=== PATIENT | male | born 1955 | race Caucasian/White ===

== ENCOUNTER 2022-08-31 10:45 | Outpatient (CLI) | payer MEDICARE, BC | END 2022-08-31 23:59 | disposition home health service (06) | LOC: WOU 10:45 | PROVIDERS: ATTEND Podiatrist Foot & Ankle Surgery | DX: T25.222A Burn of second degree of left foot, initial encounter (principal); T31.0 Burns involving less than 10% of body surface; X10.0XXA Contact with hot drinks, initial encounter; Y92.89 Other specified places as the place of occurrence of the external cause; I73.9 Peripheral vascular disease, unspecified; M79.672 Pain in left foot | CPT/HCPCS: 16020; A6253; G0463 ==

== ENCOUNTER 2022-09-23 11:16 | Inpatient (IN) | payer BC, MEDICARE ==
[~2022-09-23] VITALS: Ht 182.9 cm; Wt 77.6 kg
[2022-09-23] MEDS ORDERED: ONDANSETRON HCL/PF 4 MG/2 ML VIAL ONE (11:51)
[2022-09-23] MEDS ORDERED: LORAZEPAM INJ 2 MG/ML VIAL ONE (11:51)
[2022-09-23] MEDS ORDERED: IV NS 0.9% 1,000 ML BAG IV ONE (12:00)
[2022-09-23] MEDS ORDERED: BUPRENORPHINE HCL 8 MG TAB.SUBL SL ONE ×2 (12:00→12:22)
[2022-09-23] MEDS ORDERED: LORAZEPAM INJ 2 MG/ML VIAL IV ONE (12:00)
[2022-09-23] MEDS ORDERED: ONDANSETRON HCL/PF 4 MG/2 ML VIAL IVP ONE (12:00)
[2022-09-23 12:29] LABS: BASOPHILS % (AUTO) 0.2 % (0.0-2.0); HEMATOCRIT 43 % (39-51); HEMOGLOBIN 14.5 g/dL (13.5-17.5); LYMPHOCYTES # (AUTO) 0.6 K/uL (0.8-4.8); LYMPHOCYTES % (AUTO) 4.2 % (20.0-44.0); MEAN CORPUSCULAR HEMOGLOBIN 32 PG (26.0-33.0); MEAN CORPUSCULAR HGB CONC 34 g/dl (31.0-36.0); MEAN CORPUSCULAR VOLUME 94 fL (80-96); MONOCYTES # (AUTO) 0.9 K/uL (0.1-1.30); MONOCYTES % (AUTO) 6.2 % (2.0-12.0); NEUTROPHILS # (AUTO) 13.6 K/uL (1.8-8.9); NEUTROPHILS % (AUTO) 89.4 % (43.0-81.0); PLATELET COUNT (AUTO) 350 K/uL (150-450); RED BLOOD CELL COUNT(AUTO) 4.52 MIL/uL (4.5-6.0); WHITE BLOOD COUNT (AUTO) 15.2 K/uL (4.3-11.0)
[2022-09-23 13:00] LABS: CALCIUM, SERUM 9.6 mg/dL (8.5-10.1); CARBON DIOXIDE 18 mmol/L (21-32); CHLORIDE 88 mmol/L (98-107); CREATININE 0.9 mg/dL (0.6-1.3); GLUCOSE 173 mg/dL (74-106); POTASSIUM 4.1 mmol/L (3.5-5.1); SODIUM SERUM 126 mmol/L (136-145); UREA NITROGEN, BLOOD 16 mg/dL (7-18)
[2022-09-23 13:06] LABS: ALANINE AMINOTRANSFERASE 29 U/L (12-78); ALBUMIN 4.7 g/dL (3.4-5.0); ALKALINE PHOSPHATASE 106 U/L (46-116); ASPARTATE AMINOTRANSFERASE 34 U/L (15-37); BILIRUBIN,DIRECT 0.1 mg/dL (0.0-0.2); BILIRUBIN,TOTAL 1.1 mg/dL (0.2-1.0); LIPASE 27 U/L (73-393); TOTAL PROTEIN, SERUM 8.3 g/dL (6.4-8.2)
[2022-09-23] MEDS ORDERED: HYDR-3980 PO (14:00)
[2022-09-23] MEDS ORDERED: LOSA100T31 PO (14:00)
[2022-09-23] MEDS ORDERED: ALPR2TAB7 PO (14:00)
[2022-09-23 17:00] VITALS: BP 167/80; TEMP 98; O2SAT 96
[2022-09-23] MEDS ORDERED: ACETAMINOPHEN 325 MG TABLET PO PRN (17:30)
[2022-09-23] MEDS ORDERED: IV NS 0.9% 1,000 ML IV PRN (17:30)
[2022-09-23] MEDS: PANTOPRAZOLE 40 MG VIAL IV SCH (17:50)
[2022-09-23] MEDS: ONDANSETRON HCL/PF 4 MG/2 ML VIAL IVP PRN (17:51)
[2022-09-23] MEDS ORDERED: ALPRAZOLAM 1 MG TABLET PO PRN (18:30)
[2022-09-23] MEDS ORDERED: HYDROCODONE/APAP 10/325MG TABLET PO PRN (18:30)
[2022-09-23] MEDS: MORPHINE SULFATE INJ 2 MG/ML DISP.SYRIN IV PRN (18:59)
[2022-09-23] MEDS: LORAZEPAM INJ 2 MG/ML VIAL IV PRN (22:00)
[2022-09-24] MEDS: ONDANSETRON HCL/PF 4 MG/2 ML VIAL IVP PRN ×2 (00:17→07:55)
[2022-09-24] MEDS: LORAZEPAM INJ 2 MG/ML VIAL IV PRN ×3 (03:51→22:14)
[2022-09-24 05:00] VITALS: BP 158/79; TEMP 98; O2SAT 96
[2022-09-24 06:57] LABS: BASOPHILS % (AUTO) 0.2 % (0.0-2.0); HEMATOCRIT 38 % (39-51); HEMOGLOBIN 13.2 g/dL (13.5-17.5); LYMPHOCYTES # (AUTO) 1.2 K/uL (0.8-4.8); LYMPHOCYTES % (AUTO) 7.6 % (20.0-44.0); MEAN CORPUSCULAR HEMOGLOBIN 33 PG (26.0-33.0); MEAN CORPUSCULAR HGB CONC 35 g/dl (31.0-36.0); MEAN CORPUSCULAR VOLUME 96 fL (80-96); MONOCYTES # (AUTO) 1.7 K/uL (0.1-1.30); MONOCYTES % (AUTO) 10.2 % (2.0-12.0); NEUTROPHILS # (AUTO) 13.3 K/uL (1.8-8.9); PLATELET COUNT (AUTO) 274 K/uL (150-450); RED CELL DISTRIBUTION WIDTH 12.9 % (11.5-15.0); WHITE BLOOD COUNT (AUTO) 16.2 K/uL (4.3-11.0)
[2022-09-24 07:30] LABS: CALCIUM, SERUM 9.4 mg/dL (8.5-10.1); CREATININE 0.7 mg/dL (0.6-1.3); MAGNESIUM 2.1 mg/dL (1.8-2.4); PHOSPHORUS 3.1 mg/dL (2.5-4.9); POTASSIUM 3.3 mmol/L (3.5-5.1)
[2022-09-24] MEDS: PANTOPRAZOLE 40 MG VIAL IV SCH (08:38)
[2022-09-24] MEDS: LOSARTAN POTASSIUM 50 MG TABLET PO SCH (08:38)
[2022-09-24] MEDS ORDERED: POTASSIUM CHLORIDE 20 MEQ POWDER PACKET PO ONE (11:00)
[2022-09-24 13:00] VITALS: BP 156/80; TEMP 98; O2SAT 96
[2022-09-24] MEDS: MORPHINE SULFATE INJ 2 MG/ML DISP.SYRIN IV PRN ×2 (13:11→20:46)
[2022-09-24 16:00] VITALS: BP 170/79; TEMP 98.5; O2SAT 96
[2022-09-24] MEDS: hydrALAZINE HCL 10 MG TABLET PO PRN (16:49)
[2022-09-24 17:55] VITALS: BP 160/79; TEMP 98.5; O2SAT 96
[2022-09-24 21:00] VITALS: BP 142/75; TEMP 99.1; O2SAT 96
[2022-09-25] MEDS: LORAZEPAM INJ 2 MG/ML VIAL IV PRN (04:52)
[2022-09-25 05:00] VITALS: BP 156/79; TEMP 97.5; O2SAT 99
[2022-09-25 07:25] LABS: BASOPHILS % (AUTO) 0.1 % (0.0-2.0); EOSINOPHILS # (AUTO) 0.1 K/uL (0.0-0.7); EOSINOPHILS % (AUTO) 0.4 % (0.0-6.0); HEMATOCRIT 38 % (39-51); HEMOGLOBIN 13.1 g/dL (13.5-17.5); LYMPHOCYTES # (AUTO) 1.8 K/uL (0.8-4.8); LYMPHOCYTES % (AUTO) 14.2 % (20.0-44.0); MEAN CORPUSCULAR HEMOGLOBIN 33 PG (26.0-33.0); MEAN CORPUSCULAR HGB CONC 34 g/dl (31.0-36.0); MEAN CORPUSCULAR VOLUME 95 fL (80-96); MONOCYTES # (AUTO) 1.5 K/uL (0.1-1.30); MONOCYTES % (AUTO) 12.1 % (2.0-12.0); NEUTROPHILS # (AUTO) 9.1 K/uL (1.8-8.9); NEUTROPHILS % (AUTO) 73.2 % (43.0-81.0); PLATELET COUNT (AUTO) 293 K/uL (150-450); WHITE BLOOD COUNT (AUTO) 12.5 K/uL (4.3-11.0)
[2022-09-25 07:37] LABS: CALCIUM, SERUM 9.4 mg/dL (8.5-10.1); CREATININE 0.8 mg/dL (0.6-1.3); MAGNESIUM 2.2 mg/dL (1.8-2.4); PHOSPHORUS 2.8 mg/dL (2.5-4.9); POTASSIUM 3.1 mmol/L (3.5-5.1)
[2022-09-25] MEDS: LOSARTAN POTASSIUM 50 MG TABLET PO SCH (08:55)
[2022-09-25] MEDS ORDERED: PANTOPRAZOLE 40 MG/PACK PACK PO SCH (09:00)
[2022-09-25] MEDS: POTASSIUM CHLORIDE 20 MEQ TAB.PRT.SR PO SCH ×2 (10:25→11:35)
[2022-09-25] MEDS: MORPHINE SULFATE INJ 2 MG/ML DISP.SYRIN IV PRN ×2 (10:26→14:49)
[2022-09-25 13:00] VITALS: BP 180/86; TEMP 98.4; O2SAT 99
[2022-09-25] MEDS: hydrALAZINE HCL 10 MG TABLET PO PRN (13:26)
[2022-09-25 18:15] VITALS: BP 172/88
[2022-09-25] MEDS ORDERED: hydrALAZINE HCL 10 MG TABLET PO ONE (18:30)
== END 2022-09-25 18:50 | disposition home or self-care (01) | DRG 392 ==
LOC: ER 11:33 → MEDSG1 16:58
PROVIDERS: ADMIT Nurse Practitioner Acute Care; ATTEND Nurse Practitioner Acute Care
PROC: 05HB33Z Insertion of Infusion Device into Right Basilic Vein, Percutaneous Approach (ICD-10-PCS; principal; 2022-09-24)
DX: A08.4 Viral intestinal infection, unspecified (principal); E87.1 Hypo-osmolality and hyponatremia; F19.239 Other psychoactive substance dependence with withdrawal, unspecified; E87.20 Acidosis, unspecified; I10 Essential (primary) hypertension; F41.9 Anxiety disorder, unspecified; E78.5 Hyperlipidemia, unspecified; Z79.899 Other long term (current) drug therapy; E87.6 Hypokalemia; G89.29 Other chronic pain; D72.829 Elevated white blood cell count, unspecified
CPT/HCPCS: 36415; 71045-TC; 80048-TC; 80061-TC; 80076-TC; 83605-TC; 83690-TC; 83735-TC; 84100-TC; 85025-TC; A4223; C9113; G0378; J2060; J2270; J2405; J7030

== ENCOUNTER 2024-01-29 15:24 | Inpatient (IN) | payer BC, MEDICARE ==
[~2024-01-29] VITALS: Ht 188 cm; Wt 71.2 kg
[~2024-01-29 15:24] MED LIST: ALPR2TAB7 PO; HYDR-3980 PO; LOSA100T31 PO
[2024-01-29] MEDS ORDERED: LORAZEPAM INJ 2 MG/ML VIAL ONE (15:58)
[2024-01-29] MEDS: LORAZEPAM INJ 2 MG/ML VIAL IV ONE ×2 (16:00→22:27)
[2024-01-29] MEDS ORDERED: ONDANSETRON HCL/PF 4 MG/2 ML VIAL ONE (16:15)
[2024-01-29] MEDS: ONDANSETRON HCL/PF - ER 4 MG/2 ML VIAL IV ONE (16:15)
[2024-01-29 16:30] LABS: BASOPHILS # (AUTO) 0.2 K/uL (0.0-0.2); HEMATOCRIT 39 % (39-51); HEMOGLOBIN 13.2 g/dL (13.5-17.5); LYMPHOCYTES # (AUTO) 0.7 K/uL (0.8-4.8); MEAN CORPUSCULAR HEMOGLOBIN 30 PG (26.0-33.0); MEAN CORPUSCULAR HGB CONC 34 g/dl (31.0-36.0); MEAN CORPUSCULAR VOLUME 87 fL (80-96); MONOCYTES # (AUTO) 1.1 K/uL (0.1-1.30); MONOCYTES % (AUTO) 4.9 % (2.0-12.0); NEUTROPHILS # (AUTO) 20.6 K/uL (1.8-8.9); NEUTROPHILS % (AUTO) 91.1 % (43.0-81.0); PLATELET COUNT (AUTO) 458 K/uL (150-450); RED BLOOD CELL COUNT(AUTO) 4.45 MIL/uL (4.5-6.0); RED CELL DISTRIBUTION WIDTH 16.2 % (11.5-15.0); WHITE BLOOD COUNT (AUTO) 22.6 K/uL (4.3-11.0)
[2024-01-29 16:41] LABS: CALCIUM, SERUM 9.4 mg/dL (8.5-10.1); CARBON DIOXIDE 16 mmol/L (21-32); CHLORIDE 105 mmol/L (98-107); CREATININE 1.4 mg/dL (0.6-1.3); GLUCOSE 143 mg/dL (74-106); POTASSIUM 3.7 mmol/L (3.5-5.1); SODIUM SERUM 140 mmol/L (136-145); UREA NITROGEN, BLOOD 21 mg/dL (7-18)
[2024-01-29 16:45] LABS: ALANINE AMINOTRANSFERASE 26 U/L (12-78); ALBUMIN 4.5 g/dL (3.4-5.0); ALCOHOL, BLOOD < 3 mg/dL (0-10); ALKALINE PHOSPHATASE 133 U/L (46-116); ASPARTATE AMINOTRANSFERASE 19 U/L (15-37); BILIRUBIN,DIRECT 0.1 mg/dL (0.0-0.2); BILIRUBIN,TOTAL 0.6 mg/dL (0.2-1.0); TOTAL PROTEIN, SERUM 8.3 g/dL (6.4-8.2)
[2024-01-29 16:51] LABS: INR 1.02 (0.91-1.10); PARTIAL THROMBOPLASTIN TIME 24.8 SEC (24.3-34.3); PROTHROMBIN TIME 10.8 SECS (9.2-11.1)
[2024-01-29 17:06] LABS: CREATINE KINASE, TOTAL 194 U/L (39-308)
[2024-01-29 17:14] LABS: MONOCYTES % (MANUAL) 5 % (0-11.0); NEUTROPHILS % (MANUAL) 90 (42-76)
[2024-01-29 17:15] LABS: LYMPHOCYTES % (MANUAL) 5 % (16-48); PLATELET ESTIMATE ADEQUATE
[2024-01-29 17:16] LABS: LACTIC ACID 6.3 mmol/L (0.4-2.0)
[2024-01-29] MEDS ORDERED: CEFTRIAXONE 1 G VIAL ONE (17:27)
[2024-01-29] MEDS ORDERED: LIDOCAINE 1% INJ 50 ML MDV IJ ONE (17:28)
[2024-01-29 17:29] LABS: APPEARANCE,URINE CLEAR (CLEAR); BILIRUBIN,URINE NEGATIVE (NEGATIVE); BLOOD, URINE 2+ Ery/uL (NEGATIVE); COLOR,URINE YELLOW (YELLOW); KETONES,URINE 2+ mg/dL (NEGATIVE); LEUKOCYTE ESTERASE ,URINE NEGATIVE (NEGATIVE); NITRITE, URINE NEGATIVE (NEGATIVE); PH,URINE 5.5 (5.0-8.0); PROTEIN,URINE 1+ mg/dl (NEGATIVE); UGLUCOSE NEGATIVE (NEGATIVE); UROBILINOGEN,URINE 0.2 EU/dL (0.2)
[2024-01-29] MEDS: CEFTRIAXONE 1 G VIAL IM ONE (17:30)
[2024-01-29] MEDS: IV NS 0.9% 1,000 ML BAG IV ONE (17:30)
[2024-01-29 17:31] LABS: ADD URINE CULTURE NO; BACTERIA,URINE Rare /HPF (None Seen); SQUAMOUS EPITHELIAL CELL,UR Rare /HPF (None Seen)
[2024-01-29 17:32] LABS: CALCIUM OXALATE CRYSTALS,UR Few /HPF (None Seen)
[2024-01-29 17:59] LABS: AMPHETAMINE, URINE NEGATIVE (NEGATIVE); BARBITURATE, URINE NEGATIVE (NEGATIVE); BENZODIAZEPINE, URINE NEGATIVE (NEGATIVE); CANNABINOID, URINE POSITIVE (NEGATIVE); COCCAINE, URINE NEGATIVE (NEGATIVE); OPIATE, URINE NEGATIVE (NEGATIVE); PHENCYCLIDINE SCREEN,URINE NEGATIVE (NEGATIVE)
[2024-01-29] MEDS ORDERED: AMLO-213 PO (18:48)
[2024-01-29] MEDS ORDERED: PANT40TA49 PO (18:48)
[2024-01-29] MEDS ORDERED: ALBU6.7H9 IH (18:48)
[2024-01-29] MEDS: LEVETIRACETAM (500MG) 1,000 MG in IV NS 0.9% 90 ML IV SCH (19:50)
[2024-01-29] MEDS: FLAGYL/NS RTU 500 MG/100 ML PIGGYBACK IV ONE (20:35)
[2024-01-29 22:33] VITALS: BP 144/68; TEMP 98.3; O2SAT 98
[2024-01-29] MEDS ORDERED: Z GUARD REMEDY 4 OZ OINT TP PRN (23:00)
[2024-01-29] MEDS ORDERED: ALBUTEROL SULFATE 8 GM HFA.AER.AD IH PRN (23:00)
[2024-01-29] MEDS ORDERED: ACETAMINOPHEN 325 MG TABLET PO PRN (23:00)
[2024-01-29] MEDS ORDERED: ALPRAZOLAM 1 MG TABLET PO PRN (23:00)
[2024-01-30] VITALS: BP 152/72; TEMP 98.7; O2SAT 98
[2024-01-30] MEDS: ONDANSETRON HCL/PF 4 MG/2 ML VIAL IVP PRN (00:34)
[2024-01-30 04:00] VITALS: BP 145/78; TEMP 97.9; O2SAT 98
[2024-01-30 07:58] LABS: BASOPHILS % (AUTO) 0.2 % (0.0-2.0); HEMATOCRIT 38 % (39-51); HEMOGLOBIN 12.7 g/dL (13.5-17.5); LYMPHOCYTES # (AUTO) 1.3 K/uL (0.8-4.8); LYMPHOCYTES % (AUTO) 7.5 % (20.0-44.0); MEAN CORPUSCULAR HEMOGLOBIN 29 PG (26.0-33.0); MEAN CORPUSCULAR HGB CONC 34 g/dl (31.0-36.0); MEAN CORPUSCULAR VOLUME 86 fL (80-96); MONOCYTES % (AUTO) 5.6 % (2.0-12.0); NEUTROPHILS % (AUTO) 86.7 % (43.0-81.0); PLATELET COUNT (AUTO) 338 K/uL (150-450); RED BLOOD CELL COUNT(AUTO) 4.41 MIL/uL (4.5-6.0); RED CELL DISTRIBUTION WIDTH 16.6 % (11.5-15.0); WHITE BLOOD COUNT (AUTO) 17.3 K/uL (4.3-11.0)
[2024-01-30 08:00] VITALS: BP 158/74; TEMP 98.8; O2SAT 98
[2024-01-30] MEDS: PANTOPRAZOLE 40 MG TABLET.DR PO SCH (08:07)
[2024-01-30] MEDS: AMLODIPINE BESYLATE 10 MG TABLET PO SCH (08:07)
[2024-01-30] MEDS: LEVETIRACETAM (250 MG) 250 MG TABLET PO SCH (08:07)
[2024-01-30] MEDS: HEPARIN SODIUM, PORCINE 5000 UNITS/1 ML VIAL SQ SCH (08:08)
[2024-01-30 08:12] LABS: CALCIUM, SERUM 9.3 mg/dL (8.5-10.1); CREATININE 1.1 mg/dL (0.6-1.3); MAGNESIUM 2.5 mg/dL (1.8-2.4); PHOSPHORUS 2.7 mg/dL (2.5-4.9); POTASSIUM 3.6 mmol/L (3.5-5.1)
[2024-01-30] MEDS: HYDROCODONE/APAP 10/325MG TABLET PO SCH (08:16)
[2024-01-30 09:03] LABS: THYROID STIMULATING HORMONE 0.82 uIU/mL (0.358-3.74)
[2024-01-30 12:00] VITALS: BP 158/82; TEMP 98.6; O2SAT 98
[2024-01-30] MEDS: METRONIDAZOLE 500MG/ NS 100ML 500 MG in PREMIX 1 EA IV SCH (12:17)
[2024-01-30] MEDS: CEFTRIAXONE 1 G in IV D5W 50 ML IV SCH (13:18)
[2024-01-30 16:00] VITALS: BP 155/88; TEMP 97.8; O2SAT 97
[2024-01-30 20:00] VITALS: BP 151/76; TEMP 98.2; O2SAT 95
[2024-01-31] VITALS: BP 158/84; TEMP 97.2; O2SAT 96
[2024-01-31 04:00] VITALS: BP 147/82; TEMP 97.9; O2SAT 100
[2024-01-31 07:07] LABS: FOLIC ACID 16.2 ng/mL (>3.0)
[2024-01-31 08:00] VITALS: BP 179/94; TEMP 97.7; O2SAT 99
[2024-01-31 08:18] LABS: CALCIUM, SERUM 9.2 mg/dL (8.5-10.1); CREATININE 0.8 mg/dL (0.6-1.3); POTASSIUM 3.5 mmol/L (3.5-5.1)
[2024-01-31 08:47] LABS: BASOPHILS % (AUTO) 0.2 % (0.0-2.0); EOSINOPHILS % (AUTO) 0.2 % (0.0-6.0); HEMATOCRIT 41 % (39-51); HEMOGLOBIN 13.7 g/dL (13.5-17.5); LYMPHOCYTES # (AUTO) 1.8 K/uL (0.8-4.8); LYMPHOCYTES % (AUTO) 12.5 % (20.0-44.0); MEAN CORPUSCULAR HEMOGLOBIN 29 PG (26.0-33.0); MEAN CORPUSCULAR HGB CONC 33 g/dl (31.0-36.0); MEAN CORPUSCULAR VOLUME 87 fL (80-96); MONOCYTES # (AUTO) 1.4 K/uL (0.1-1.30); MONOCYTES % (AUTO) 9.8 % (2.0-12.0); NEUTROPHILS # (AUTO) 11.2 K/uL (1.8-8.9); NEUTROPHILS % (AUTO) 77.3 % (43.0-81.0); PLATELET COUNT (AUTO) 323 K/uL (150-450); RED BLOOD CELL COUNT(AUTO) 4.71 MIL/uL (4.5-6.0); RED CELL DISTRIBUTION WIDTH 16.3 % (11.5-15.0); WHITE BLOOD COUNT (AUTO) 14.5 K/uL (4.3-11.0)
[2024-01-31 12:00] VITALS: BP 140/92; TEMP 97.9; O2SAT 99
[2024-01-31 16:00] VITALS: BP 174/91; TEMP 98.4; O2SAT 99
[2024-01-31 20:00] VITALS: BP 153/81; TEMP 98.1; O2SAT 98
[2024-02-01] VITALS (11 sets, daily range): BP systolic 138–191; BP diastolic 63–98; TEMP 97.9–98.4; O2SAT 96–100
[2024-02-01 10:25] LABS: BASOPHILS # (AUTO) 0.1 K/uL (0.0-0.2); BASOPHILS % (AUTO) 0.7 % (0.0-2.0); EOSINOPHILS # (AUTO) 0.1 K/uL (0.0-0.7); EOSINOPHILS % (AUTO) 0.4 % (0.0-6.0); HEMATOCRIT 39 % (39-51); HEMOGLOBIN 12.8 g/dL (13.5-17.5); LYMPHOCYTES # (AUTO) 1.9 K/uL (0.8-4.8); LYMPHOCYTES % (AUTO) 14.5 % (20.0-44.0); MEAN CORPUSCULAR HEMOGLOBIN 29 PG (26.0-33.0); MEAN CORPUSCULAR HGB CONC 33 g/dl (31.0-36.0); MEAN CORPUSCULAR VOLUME 87 fL (80-96); MONOCYTES # (AUTO) 1.7 K/uL (0.1-1.30); MONOCYTES % (AUTO) 12.8 % (2.0-12.0); NEUTROPHILS # (AUTO) 9.2 K/uL (1.8-8.9); NEUTROPHILS % (AUTO) 71.6 % (43.0-81.0); PLATELET COUNT (AUTO) 314 K/uL (150-450); RED BLOOD CELL COUNT(AUTO) 4.42 MIL/uL (4.5-6.0); RED CELL DISTRIBUTION WIDTH 16.4 % (11.5-15.0); WHITE BLOOD COUNT (AUTO) 12.9 K/uL (4.3-11.0)
[2024-02-01 10:36] LABS: CALCIUM, SERUM 9.2 mg/dL (8.5-10.1); CREATININE 0.8 mg/dL (0.6-1.3); POTASSIUM 3.3 mmol/L (3.5-5.1)
[2024-02-01] MEDS: hydrALAZINE HCL IV 20 MG VIAL IV PRN (13:05)
[2024-02-01] MEDS: ZOLPIDEM TARTRATE 5 MG TABLET PO PRN (21:41)
[2024-02-01] MEDS: ALBUTEROL FS 2.5 MG/3 ML VIAL.NEB NEB PRN (23:07)
[2024-02-02] VITALS: BP 152/86; TEMP 98.2; O2SAT 98
[2024-02-02 04:00] VITALS: BP 159/85; TEMP 98.4; O2SAT 99
[2024-02-02 07:21] LABS: BASOPHILS % (AUTO) 0.3 % (0.0-2.0); EOSINOPHILS # (AUTO) 0.1 K/uL (0.0-0.7); EOSINOPHILS % (AUTO) 0.6 % (0.0-6.0); HEMATOCRIT 41 % (39-51); HEMOGLOBIN 13.7 g/dL (13.5-17.5); LYMPHOCYTES # (AUTO) 1.7 K/uL (0.8-4.8); LYMPHOCYTES % (AUTO) 18.3 % (20.0-44.0); MEAN CORPUSCULAR HEMOGLOBIN 29 PG (26.0-33.0); MEAN CORPUSCULAR HGB CONC 34 g/dl (31.0-36.0); MEAN CORPUSCULAR VOLUME 87 fL (80-96); MONOCYTES # (AUTO) 1.2 K/uL (0.1-1.30); MONOCYTES % (AUTO) 13.6 % (2.0-12.0); NEUTROPHILS # (AUTO) 6.2 K/uL (1.8-8.9); NEUTROPHILS % (AUTO) 67.2 % (43.0-81.0); PLATELET COUNT (AUTO) 337 K/uL (150-450); RED CELL DISTRIBUTION WIDTH 16.4 % (11.5-15.0); WHITE BLOOD COUNT (AUTO) 9.2 K/uL (4.3-11.0)
[2024-02-02 07:38] LABS: CALCIUM, SERUM 9.1 mg/dL (8.5-10.1); CREATININE 0.8 mg/dL (0.6-1.3)
[2024-02-02 08:15] VITALS: BP 153/94; TEMP 97.5; O2SAT 95
[2024-02-02] MEDS: POTASSIUM CHLORIDE 20 MEQ TAB.PRT.SR PO SCH (09:43)
[2024-02-02] MEDS: METRONIDAZOLE 500 MG TABLET PO SCH (12:01)
[2024-02-02 12:15] VITALS: BP 134/84; TEMP 98.8; O2SAT 97
[2024-02-02 16:07] VITALS: BP 135/79; TEMP 98.2; O2SAT 97
[2024-02-02 20:00] VITALS: BP 128/97; TEMP 97.7; O2SAT 96
[2024-02-02] MEDS: HYDROCODONE/APAP 5/325MG TABLET PO PRN (21:36)
[2024-02-03 04:00] VITALS: BP 153/92; TEMP 98; O2SAT 97
[2024-02-03 08:00] VITALS: BP 145/68; TEMP 98.6; O2SAT 97
[2024-02-03 08:15] LABS: BASOPHILS # (AUTO) 0.1 K/uL (0.0-0.2); BASOPHILS % (AUTO) 0.5 % (0.0-2.0); EOSINOPHILS # (AUTO) 0.2 K/uL (0.0-0.7); EOSINOPHILS % (AUTO) 1.5 % (0.0-6.0); HEMATOCRIT 39 % (39-51); HEMOGLOBIN 13.4 g/dL (13.5-17.5); LYMPHOCYTES # (AUTO) 2.6 K/uL (0.8-4.8); MEAN CORPUSCULAR HEMOGLOBIN 30 PG (26.0-33.0); MEAN CORPUSCULAR HGB CONC 35 g/dl (31.0-36.0); MEAN CORPUSCULAR VOLUME 86 fL (80-96); MONOCYTES # (AUTO) 1.3 K/uL (0.1-1.30); MONOCYTES % (AUTO) 12.2 % (2.0-12.0); NEUTROPHILS # (AUTO) 6.3 K/uL (1.8-8.9); NEUTROPHILS % (AUTO) 60.8 % (43.0-81.0); PLATELET COUNT (AUTO) 349 K/uL (150-450); RED BLOOD CELL COUNT(AUTO) 4.51 MIL/uL (4.5-6.0); RED CELL DISTRIBUTION WIDTH 16.6 % (11.5-15.0); WHITE BLOOD COUNT (AUTO) 10.5 K/uL (4.3-11.0)
[2024-02-03 08:20] LABS: CALCIUM, SERUM 9.1 mg/dL (8.5-10.1); CREATININE 0.8 mg/dL (0.6-1.3); POTASSIUM 3.7 mmol/L (3.5-5.1)
[2024-02-03] MEDS: FLUTICASONE PROPIONATE 16 GM BOTTLE NS SCH (09:25)
[2024-02-03 16:00] VITALS: BP 145/87; TEMP 98.4; O2SAT 97
[2024-02-03 20:00] VITALS: BP 139/89; TEMP 98.8; O2SAT 96
[2024-02-04 04:00] VITALS: BP 154/88; TEMP 98.1; O2SAT 97
[2024-02-04 07:09] LABS: BASOPHILS # (AUTO) 0.1 K/uL (0.0-0.2); BASOPHILS % (AUTO) 0.6 % (0.0-2.0); EOSINOPHILS # (AUTO) 0.2 K/uL (0.0-0.7); EOSINOPHILS % (AUTO) 1.4 % (0.0-6.0); HEMATOCRIT 40 % (39-51); HEMOGLOBIN 13.4 g/dL (13.5-17.5); LYMPHOCYTES # (AUTO) 2.4 K/uL (0.8-4.8); LYMPHOCYTES % (AUTO) 20.5 % (20.0-44.0); MEAN CORPUSCULAR HEMOGLOBIN 29 PG (26.0-33.0); MEAN CORPUSCULAR HGB CONC 34 g/dl (31.0-36.0); MEAN CORPUSCULAR VOLUME 87 fL (80-96); MONOCYTES # (AUTO) 1.2 K/uL (0.1-1.30); MONOCYTES % (AUTO) 10.2 % (2.0-12.0); NEUTROPHILS # (AUTO) 7.9 K/uL (1.8-8.9); NEUTROPHILS % (AUTO) 67.3 % (43.0-81.0); PLATELET COUNT (AUTO) 358 K/uL (150-450); RED CELL DISTRIBUTION WIDTH 16.7 % (11.5-15.0); WHITE BLOOD COUNT (AUTO) 11.7 K/uL (4.3-11.0)
[2024-02-04 07:11] LABS: POTASSIUM 3.7 mmol/L (3.5-5.1)
[2024-02-04 08:00] VITALS: BP 150/84; TEMP 98.2; O2SAT 97
[2024-02-04 16:00] VITALS: BP 150/84; TEMP 98.2; O2SAT 97
[2024-02-04 20:00] VITALS: BP 139/76; TEMP 98.1; O2SAT 96
[2024-02-05 04:00] VITALS: BP 145/86; TEMP 98.4; O2SAT 97
[2024-02-05 08:00] VITALS: BP 146/84; TEMP 97.9; O2SAT 100
[2024-02-05 08:26] LABS: BASOPHILS # (AUTO) 0.1 K/uL (0.0-0.2); BASOPHILS % (AUTO) 0.7 % (0.0-2.0); EOSINOPHILS # (AUTO) 0.2 K/uL (0.0-0.7); EOSINOPHILS % (AUTO) 1.9 % (0.0-6.0); HEMATOCRIT 43 % (39-51); HEMOGLOBIN 14.2 g/dL (13.5-17.5); LYMPHOCYTES # (AUTO) 2.8 K/uL (0.8-4.8); LYMPHOCYTES % (AUTO) 23.1 % (20.0-44.0); MEAN CORPUSCULAR HEMOGLOBIN 29 PG (26.0-33.0); MEAN CORPUSCULAR HGB CONC 33 g/dl (31.0-36.0); MEAN CORPUSCULAR VOLUME 87 fL (80-96); MONOCYTES # (AUTO) 1.3 K/uL (0.1-1.30); MONOCYTES % (AUTO) 11.1 % (2.0-12.0); NEUTROPHILS # (AUTO) 7.6 K/uL (1.8-8.9); NEUTROPHILS % (AUTO) 63.2 % (43.0-81.0); PLATELET COUNT (AUTO) 390 K/uL (150-450); RED BLOOD CELL COUNT(AUTO) 4.88 MIL/uL (4.5-6.0); RED CELL DISTRIBUTION WIDTH 17.1 % (11.5-15.0)
[2024-02-05 08:44] VITALS: BP 146/84
[2024-02-05 09:01] LABS: CALCIUM, SERUM 9.1 mg/dL (8.5-10.1); POTASSIUM 3.6 mmol/L (3.5-5.1)
[2024-02-05 10:07] LABS: VITAMIN B1 THIAMINE,WB 169.1 nmol/L (66.5-200.0)
[2024-02-05] MEDS ORDERED: LEVO500T90 PO (13:06)
[2024-02-05] MEDS ORDERED: LEVE250T2 PO (13:06)
[2024-02-05] MEDS ORDERED: METR500T PO (13:06)
== END 2024-02-05 15:27 | disposition home or self-care (01) | DRG 871 ==
LOC: ER 15:26 → TELE1 20:14 → MEDSG1 02-02 07:59
PROVIDERS: ADMIT Nurse Practitioner Family; ATTEND Nurse Practitioner Family
DX: A41.9 Sepsis, unspecified organism (principal); G92.8 Other toxic encephalopathy; J15.9 Unspecified bacterial pneumonia; N17.0 Acute kidney failure with tubular necrosis; F11.23 Opioid dependence with withdrawal; A04.9 Bacterial intestinal infection, unspecified; F13.239 Sedative, hypnotic or anxiolytic dependence with withdrawal, unspecified; E87.20 Acidosis, unspecified; K86.1 Other chronic pancreatitis; R65.20 Severe sepsis without septic shock; G40.909 Epilepsy, unspecified, not intractable, without status epilepticus; G89.4 Chronic pain syndrome; D64.9 Anemia, unspecified; Z78.1 Physical restraint status; M89.8X9 Other specified disorders of bone, unspecified site; F12.10 Cannabis abuse, uncomplicated; E86.9 Volume depletion, unspecified; D75.839 Thrombocytosis, unspecified; I10 Essential (primary) hypertension; F41.9 Anxiety disorder, unspecified
CPT/HCPCS: 36415; 70450-TC; 71045-TC; 80048-TC; 80061-TC; 80076-TC; 81001; 82550-TC; 82607-TC; 82803-TC; 83540-TC; 83605-TC; 83735-TC; 83921; 84100-TC; 84425; 84443-TC; 84484-TC; 85025-TC; 85730-TC; 87040-TC; 87086-TC; 89055; 94799-TC; 97110-TC; 97116-TC; 97530-TC; A4216; A4223; G0378; G0480; J0360; J0696; J1644; J1953; J2060; J2405; J3490; J7030; J7040; J7060